=== PATIENT | female | born 1980 | race Caucasian/White ===

== ENCOUNTER 2016-10-09 12:10 | Emergency (ER) | payer MEDICAID, OTHER ==
[~2016-10-09] VITALS: Ht 165.1 cm; Wt 70.3 kg
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
[2016-10-09] MEDS ORDERED: IBUPROFEN 600 MG TABLET PO ONE ×2 (12:26→12:30)
[2016-10-09] MEDS ORDERED: TDAP [DIPH/PERTUSSIS/TET] 0.5 ML VIAL IM ONE ×2 (12:26→12:30)
[2016-10-09] MEDS ORDERED: HYDROCODONE/APAP 10/325MG 1 EA TABLET ONE (12:26)
[2016-10-09] MEDS ORDERED: HYDROCODONE/APAP 10/325MG 1 EA TABLET PO ONE (12:30)
--- NOTE | 2016-10-09 14:20 | NUR ---
PT. VERBALIZED UNDERSTANDING OF AFTERCARE INSTRUCTIONS.Patient discharged to home in stable condition. Written and verbal after care instructions given. Patient verbalizes understanding of instruction.
[2016-10-09 14:22] VITALS: BP 137/102
== END 2016-10-09 14:22 | disposition home or self-care (01) ==
LOC: ER 12:11
DX: S52.91XA Unspecified fracture of right forearm, initial encounter for closed fracture (principal); S60.222A Contusion of left hand, initial encounter; S80.01XA Contusion of right knee, initial encounter; S40.812A Abrasion of left upper arm, initial encounter; V87.8XXA Person injured in other specified noncollision transport accidents involving motor vehicle (traffic), initial encounter; Y93.89 Activity, other specified; Y92.89 Other specified places as the place of occurrence of the external cause; Y99.9 Unspecified external cause status
CPT/HCPCS: 73110; 73130-TC; 73564-TC; 90715; A4606; Z7610